=== PATIENT | female | born 1945 | race Caucasian/White ===

== ENCOUNTER → 2018-05-25 14:08 | Outpatient (CLI) | payer MEDICARE, MEDICAID, SELFPAY ==
--- NOTE | 2018-05-25 14:17 | XR_ITS ---
EXAM: XR cervical spine 5V HISTORY: Neck pain ITS.REASON: CERVICALGIA ORDERING PHYSICIAN: Debora Francisco PATIENT AGE: 72 years COMPARISON: None FINDINGS: There is mild degenerative disc disease at C4-C5 C5-C6 and C6-C7 with decrease in the disc spaces and small endplate osteophytes. No fracture or dislocation. No lytic or blastic change. There is some mild uncovertebral hypertrophy with mild foraminal narrowing on the right at C3-C4 and C4-C5 and on the left at C4-C5 and C5-C6. There is straightening of the cervical lordosis which may be due to patient positioning or muscle spasm. IMPRESSION: Cervical spondylosis with degenerative disc disease and uncovertebral arthropathy with mild bilateral foraminal narrowing as described above
== END ==
PROVIDERS: PCP Nurse Practitioner Family; Visit Provider Nurse Practitioner Family
DX: M54.2 Cervicalgia (principal)
CPT/HCPCS: 72050

== ENCOUNTER → 2018-06-08 14:08 | Outpatient (CLI) | payer MEDICARE, MEDICAID, SELFPAY ==
--- NOTE | 2018-06-08 14:40 | MR_ITS ---
MR cervical spine wo con Ordering Physician: Debora Francisco Patient Age: 72 years: Female HISTORY: ITS.REASON: CERVICALGIA Neck pain with involuntary shaking left-sided body. TECHNIQUE: Sagittal STIR, T1, T2, axial T1 and T2. On 1.5T Siemens wide bore MRI. 3-D MR myelogram image set obtained & performed on MRI workstation. Additional sagittal thin section T2 weighted dataset obtained from this latter acquisition as well (---76 CPT) COMPARISON :Plain films cervical spine 05/25/2018 FINDINGS Cranial cervical junction appears normal. The cervical cord normal caliber and signal 'Empty sella' incidentally noted Multilevel degenerative disc changes and cervical spondylosis most evident C4/5, C5 C6 C6/7 C2/3 disc intact no listhesis. C3/4 disc intact. C4/5. Mild disc space narrowing an cervical spondylosis. Mild diffuse posterior hypertrophic ridging. The mild diffuse posterior disc/osteophyte features indent anterior aspect of the thecal sac and yield mild foraminal encroachment. C5/6. Again disc space narrowing evident with mild diffuse posterior hypertrophic ridging..The mild diffuse posterior disc/osteophyte features slight indent anterior aspect of the thecal sac and yield mild foraminal encroachment. -Slightly more so on right C6/7disc space narrowing evident with mild diffuse posterior hypertrophic ridging..The mild diffuse posterior disc/osteophyte features with slight additional spurring left paracentral. These features slightly indents the anterior thecal sac particularly at the left paracentral region. Mild foraminal encroachment. -Slightly more evident to the left at this level. C7/T1 intact. T1/T2 disc intact. T2/T3. Minimal central disc protrusion with minor diffuse posterior hypertrophic ridging. . Mild degenerative facet changes throughout C-spine also noted most evident the at the upper C-spine bilateral 3-D MR myelogram image set shows the minor indentation upon the anterior thecal sac at C4/5 C5-C6 C6-C7.. Lesions slight narrowing of the C-spine with No definitive spinal stenosis Multilevel perineural cyst throughout C-spine bilaterally incidentally noted. Nonspecific incidental observation typically of no significance IMPRESSION:-------- Multilevel degenerative disc changes and cervical spondylosis most evident C4/5, C5 C6 C6/7 C6/7. The spondylosis & mild posterior osteophytic ridging is most evident at this level spurring slightly more pronounced towards left foramen with mild/moderate encroachment upon the foramen bilaterally. C5,/6 & C4/5 narrowed degenerated disc, mild spondylosis and mild posterior osteophytic ridging with mild bilateral foraminal encroachment. .
== END ==
PROVIDERS: PCP Nurse Practitioner Family; Visit Provider Nurse Practitioner Family
DX: M54.2 Cervicalgia (principal)
CPT/HCPCS: 72141; 76376

== ENCOUNTER → 2020-09-12 11:08 | Outpatient (CLI) | payer MEDICARE, MEDICAID, SELFPAY | PROVIDERS: PCP Nurse Practitioner Family; Visit Provider Internal Medicine | DX: E78.5 Hyperlipidemia, unspecified (principal); I10 Essential (primary) hypertension; R00.2 Palpitations; R06.00 Dyspnea, unspecified; R07.9 Chest pain, unspecified; R42 Dizziness and giddiness; R61 Generalized hyperhidrosis; R94.31 Abnormal electrocardiogram [ECG] [EKG]; Z72.0 Tobacco use | CPT/HCPCS: 93270 ==

== ENCOUNTER → 2020-10-13 06:08 | Outpatient (CLI) | payer MEDICARE, MEDICAID, SELFPAY ==
--- NOTE | 2020-10-13 06:08 | NM_ITS ---
APPROVED REPORT Exam: Nuclear Stress Test Indication: OBESITY, HTN, HYPERLIPIDEMIA, TOB USE, C.P., SOB, PALPITATIONS, ABN EKG Patient Location: Outpatient Stress Tech: Peyton Benavideznkson [place] Tech:Frances Kelly, ARRT RT (R)(N)(M) Ht: 5 ft 3 in Wt: 185 lbs Bra Size: 42DD HR: 71 bpm BP: 149/107 mmHg BSA: 1.87 m2 BMI: 32.7 History: OBESITY, HTN, HYPERLIPIDEMIA, TOB USE, C.P., SOB, PALPITATIONS, ABN EKG Procedure: Patient received a 0.4 mg of intravenous Lexiscan, resting heart rate 71 bpm, resting blood pressure 149/107 mmHg, with Lexiscan maximum heart rate achived was 99 bpm which is Less than 85 % of the maximum predicted heart rate and blood pressure was 193/102 mmHg. With Lexiscan, patient denied any complaint of chest pain. Electrocardiogram Resting electrocardiogram showed sinus rhythm, with Lexiscan there is less than 1.[address] segment depression noted from the baseline EKG. The EKG portion of the Lexiscan is nondiagnostic. Cardiac Stress and Resting SPECT Images: Cardiac Stress and Resting SPECT images were obtained using technetium 99m Myoview 31.3 mCi stress and 10.64 mCi at rest. Gated SPECT for analysis of segmental wall motion and calculation of the ejection fraction also done. Prone images were also obtained. Cardiac stress and resting SPECT images show uniform myocardial activity without segmental perfusion abnormality, computer derived ejection fraction is 55% with no regional wall motion abnormality, right ventricle is mildly enlarged with normal contractility, there is transient ischemic dilatation of the left ventricle seen, raising the concerns for presence of balanced ischemia, other causes for transient ischemic dilatation includes elevated left ventricular end-diastolic pressure, hypertensive heart disease, microvascular disease and diabetes. Clinical correlation is recommended. Conclusion: 1. The EKG portion of the Lexiscan is nondiagnostic 2. No scintigraphic evidence of reversible ischemia seen, computer derived ejection fraction is 55% with no regional wall motion abnormality, right ventricle is mildly enlarged with normal contractility, there is transient ischemic dilatation of the left ventricle seen, raising the concern for presence of balanced ischemia, other causes for transient ischemic dilatation includes elevated left ventricular end-diastolic pressure, hypertensive heart disease, microvascular disease and diabetes. Clinical correlation is recommended. 3. Abnormal Lexiscan Myoview study. Electronically signed by : Keenan Vasquez, 10/13/2020 10:44:58
--- NOTE | 2020-10-13 06:08 | CA_ITS ---
APPROVED REPORT EXAM: Comprehensive 2D, Doppler, and color-flow Echocardiogram [employer] Machine Tender: Jacqueline Hill RVT Ht: 5 ft 3 in Wt: 188lbs BSA: 1.88 BP: 161/89 mmHg Indications: PALPS,ABN EKG,CP,HTN,SOA,SMOKER,HLD TDS 2D Dimensions LVOT 1.57 cm (M/F) 1.5-2.5 LA Volume 34.50 mL LA Volume Index 18.35 mL/m2 (M/F) 16-34 M-Mode Dimensions RVDd 2.32 cm (0.9-2.6) LA Diam 3.95 cm (1.9-4.0) LVDd 4.14 cm (3.5-5.7) Ao Diam 2.96 cm (2.0-3.7) LVDs 2.36 cm (3.5-5.7) IVSd 1.63 cm (0.6-1.1) PWd 0.76 cm (0.6-1.1) EF (Teich) 74.60% FS 43.00% EDV (Teich) 75.90 mL TAPSE 2.14 (<1.7) ESV (Teich) 19.30 mL LV Diastology E Decel Time 203.00 (160-240 msec) E/A Ratio 0.8 MED E' 4.40 (< 7 cm/sec) E'/MED E' Ratio 14.02 (>14) LAT E' 6.00 (<10 cm/sec) E/LAT E' Ratio 10.28 (>14) Aortic Valve AI PHT 1337.00 ms AO Peak GR. 5.70 mmHg Mitral Valve MV E Max Dorian. 62.00 (40-130 cm/s) MV A Velocity 77.00 (40-130 cm/s) E/A Ratio 0.80 MV Decel. Time 203.00 (160-240 ms) MV PHT 60.00 ms Pulmonary Valve PV Peak Velocity 87.00 (50-150 cm/s) Tricuspid Valve TR P. Velocity 199.00 cm/s RAP Estimate 10.00 mmHg RVSP 25.80 mmHg Left Ventricle Left atrium is moderately enlarged, left ventricle is normal size, mild concentric left ventricular hypertrophy, visually estimated ejection fraction 55% with no regional wall motion abnormality, grade 1 diastolic dysfunction seen without tissue Doppler evidence of raise left atrial pressure. Right Ventricle Right atrium and right ventricle are normal size and contractility. Aortic Valve Aortic valve is thickened and calcified leaflet chordae display good mobility, there is no aortic stenosis, there is mild aortic insufficiency. Mitral Valve Mitral valve grossly normal, there is trace mitral regurgitation. Tricuspid Valve Tricuspid grossly normal, there is trace tricuspid regurgitation, tricuspid regurgitation jet velocity is inadequate for calculation of the right ventricular systolic pressure. Pulmonic Valve Pulmonic valve is poorly visualized. Great Vessels Aortic root is normal size. Pericardium No significant pericardial effusion noted. Conclusion 1. Moderately enlarged left atrium, normal left ventricular size, mild concentric left ventricular hypertrophy, visually estimated ejection fraction 55% with no regional wall motion abnormality, grade 1 diastolic dysfunction seen without tissue Doppler evidence of raise left atrial pressure. 2. Mild aortic, trace mitral and tricuspid regurgitation. 3. No significant pericardial effusion noted. Electronically signed by : Keenan Vasquez, 10/13/2020 12:41:55
--- NOTE | 2020-10-13 06:08 | CA_ITS ---
APPROVED REPORT Exam: Pharmacologic Technologist: Asuncion Ackerman, Ht: 5 ft 3 in Wt: 188 lbs BSA: 1.88 m2 Rhythm: NSR Medical History Medical History: HTN, Hyperlipidemia Medications: MeLOXICAM,,,,, DulOXETINE,,,,, ClonAZapam,,,,, PraAVASTATIN,,,,, Lisinopri/HCTZ,,,,, Atendol,,,,, Cardiac Risk Factors: HTN, Hyperlipidemia Stress Test Details Test: LEXISCAN HR Resting HR: 73 bpm Max Heart Rate (APMHR): 147.671417 bpm Max HR Achieved: 93 bpm Target HR (85% APMHR): 124.393687 bpm % of APMHR: 63.27 Recovery HR: 80 bpm BP Resting BP: 149/107 mmHg Max BP: 206/99 mmHg Recovery BP: 203.0/97.0 mmHg ECG Resting ECG: NSR Clinical Reason for Termination: Completed Protocol Exercise duration: 04:18 min Highest Stage Achieved: Exercise capacity: 1.0 METs Stress ECG Conclusion DURING LEXISCAN PT EXPERINCED NO CP. NO ARRTHYMIAS OR ECTOPY. <1.5MM ST SEGMENT CHANGES. NON DIAGNOSTIC Test Summary RECOVERY 04:00 . . 77 . 191/ 87 . . REST 04:12 . . 73 . 149/107 . . Stage 1 01:00 . . 82 . . . . Stage 2 01:00 . . 88 . 193/102 . . Stage 3 01:00 . . 82 . 206/ 99 . . Stage 4 01:00 . . 79 . . . . Stage 4 01:18 . . 81 . 201/ 95 . Stop exercise at 04:18 RECOVERY 01:00 . . 79 . 203/ 97 . . RECOVERY 02:00 . . 80 . 203/ 97 . . RECOVERY 03:00 . . 77 . 187/ 88 . . RECOVERY 04:00 . . 77 . 191/ 87 . . RECOVERY 05:00 . . 79 . 191/ 87 . . RECOVERY 06:00 . . 75 . 174/ 88 . . RECOVERY 06:11 . . 75 . 174/ 88 . . Electronically signed by : Keenan Vasquez, 10/13/2020 10:40:57
== END ==
PROVIDERS: PCP Nurse Practitioner Family; Visit Provider Nurse Practitioner Family
DX: E78.5 Hyperlipidemia, unspecified (principal); I10 Essential (primary) hypertension; R00.2 Palpitations; R07.9 Chest pain, unspecified; R94.31 Abnormal electrocardiogram [ECG] [EKG]; Z72.0 Tobacco use
CPT/HCPCS: 78452; 93017; 93306; A9502; J2785

== ENCOUNTER → 2020-11-03 08:17 | Outpatient (CLI) | payer MEDICARE, MEDICAID, SELFPAY ==
--- NOTE | 2020-11-03 08:18 | CA_ITS ---
APPROVED REPORT Hotel Housekeeper: Jacqueline Hill RVT Study Quality: Good Indications: malignant hypertension Risk Factors Hypertension Hyperlipidemia Obesity Smoking Renal Artery Doppler Origin (R) 138.7/ cm/sec Proximal (R) 131.5/ cm/sec Mid (R) 175.3/ cm/sec Distal (R) 140.3/ cm/sec Renal Aorta Ratio (R) 1.62 Segmental A. (R) 74.3/19.6 cm/sec RI: 0.73 Segmental A. Sup (R) 70.1/22.4 cm/sec Segmental A. Mid (R) 74.3/19.6 cm/sec Segmental A. Inf (R) 58.9/18.2 cm/sec Origin (L) 157.5/ cm/sec Proximal (L) 141.6/ cm/sec Mid (L) 113.3/ cm/sec Distal (L) 98.2/ cm/sec Renal Aorta Ratio (L) 0.00 Segmental A. (L) 57.5/17.6 cm/sec RI: 0.69 Segmental A. Sup (L) 57.5/17.6 cm/sec Segmental A. Mid (L) 48.1/19.9 cm/sec Segmental A. Inf (L) 51.6/14.1 cm/sec Renal Measurements Kidney Size (R) 11.9x6.7 cm Cortical Thickness (R) 1.6 cm Kidney Size (L) 12.5x7.4 cm Cortical Thickness (L) 1.5 cm Findings Study suggests no evidence of stenosis of the bilateral renal arteries. Conclusion Study suggests no evidence of stenosis of the bilateral renal arteries. Electronically signed by : Victor M Hudson MD 11/06/2020 17:30:46
== END ==
PROVIDERS: PCP Nurse Practitioner Family; Visit Provider Nurse Practitioner Family
DX: I10 Essential (primary) hypertension (principal)
CPT/HCPCS: 93976

== ENCOUNTER 2020-11-07 09:06 | Day surgery (SDC) | payer MEDICARE, MEDICAID, SELFPAY ==
[2020-11-07] VITALS (12 sets, daily range): BP systolic 105–161; BP diastolic 54–79; PULSE 61–87; RESP 16–20; TEMP 36.6; O2SAT 92–98; BMI 33.5
--- NOTE | 2020-11-07 07:37 | IR_ITS ---
APPROVED REPORT Patient Location: Outpatient PROCEDURES Left heart catheterization Left ventriculogram Selective coronary angiogram INDICATION Abnormal Myoview, Angina pectoris Informed consent was obtained prior to the procedure. COMPLICATIONS None Estimated Blood Loss: less than 10ml TECHNIQUE One percent lidocaine used to anesthetize the right anterior aspect of the wrist. The right radial artery was accessed via the Seldinger technique. A 6 Mohawk sheath was placed in the right radial artery. 2.5 mg of verapamil, 800 mcg of nitroglycerin, 1mg Lidocaine and 5000 U Heparin were given through the arterial sheath. The trap catheter was also used to perform left heart catheterization, left ventriculogram and selective coronary angiogram. At the end of the procedure the sheath was removed good hemostasis was achieved using Traclet band, patient was transferred to the postop holding area in stable condition. ANGIOGRAPHIC RESULTS The left main artery Normal The left anterior descending artery Has slow HARJIT II flow down its entire course with no angiographic evidence of proximal mid or distal focal atherosclerotic plaque The circumflex artery Codominant large with HARJIT II flow and no angiographic evidence of atherosclerotic plaque The right coronary artery Codominant and has a proximal 30% stenosis The PATINO ventriculogram reveals Slightly hyperdynamic at 70% The left ventricular end-diastolic pressure 15 mmHg IMPRESSION HARJIT II flow down the LAD and codominant circumflex artery consistent with endothelial dysfunction Hyperdynamic ventricle with mildly elevated LVEDP consistent with diastolic dysfunction Mild nonflow limiting coronary disease in the right coronary PLAN 1. Medical management for endothelial dysfunction, coronary disease, and diastolic dysfunction 2. Standard risk factor modification Electronically signed by : Gerald Stanley, 11/07/2020 11:08:58
[2020-11-07 09:48] LABS: Basophils # 0.1 K/mm3 (0-0.2); Basophils % 0.5 % (0.1-2.0); Eosinophils # 1.4 K/mm3 (0.0-0.4); Eosinophils % 10.6 % (0.1-12.0); Hemoglobin 15.8 g/dL (12.2-16.2); Lymphocytes # 3.6 K/mm3 (0.7-4.5); Lymphocytes % 26.7 % (10-50); Mean Corpuscular HGB Conc 34.3 g/dL (31.8-35.4); Mean Corpuscular Hemoglobin 29.4 pg (27.0-31.2); Mean Corpuscular Volume 85.6 fl (81-99); Mean Platelet Volume 7.4 fl (7.4-10.4); Monocytes # 0.7 K/mm3 (0.1-1.0); Monocytes % 5.3 % (1.7-9.3); Neutrophils # 7.6 K/mm3 (1.8-7.8); Neutrophils % 56.7 % (37.0-80.0); Platelet Count 345 K/mm3 (142-424); Red Blood Count 5.37 M/mm3 (4.20-5.40); Red Cell Distribution Width 13.3 % (11.5-17.5); White Blood Count 13.3 K/mm3 (4.8-10.8)
[2020-11-07 10:10] LABS: Chloride 101 mmol/L (98-107)
[2020-11-07 10:11] LABS: Potassium 3.9 mmoL/L (3.5-5.1); Sodium 140 mmol/L (136-145)
[2020-11-07 10:14] LABS: Anion Gap 13.9 mEq/L (5-15); Blood Urea Nitrogen 9 mg/dl (7-17); Calcium 9.6 mg/dl (8.4-10.2); Carbon Dioxide 29 mmol/L (22.0-30.0); Creatinine Clearance Estimated 68 mL/min (50-200); Estimated Glomerular Filt Rate 98 ml/min (>60); GFR (African American) 119 ML/MIN (>60); Glucose 125 mg/dl (74-100)
[2020-11-07 10:31] LABS: Coronavirus 19 IgG Antibody Positive (Negative); Coronavirus 19 IgM Antibody Negative (Negative)
== END 2020-11-07 14:15 | disposition home or self-care (01) ==
LOC: CATHLAB 09:11
PROVIDERS: PCP Nurse Practitioner Family; Visit Provider Internal Medicine
DX: I25.10 Atherosclerotic heart disease of native coronary artery without angina pectoris (principal); R06.02 Shortness of breath; R94.39 Abnormal result of other cardiovascular function study; Z79.82 Long term (current) use of aspirin; Z88.8 Allergy status to other drugs, medicaments and biological substances
CPT/HCPCS: 80048; 85025; 86328; 93458; 99152; C1725; C1769; J1644; Q9967

== ENCOUNTER 2020-12-17 11:40 | Emergency (ER) | payer MEDICARE, MEDICAID, SELFPAY ==
[2020-12-17 11:41] VITALS: BP 139/81; PULSE 73; RESP 16; TEMP 36.7; O2SAT 97; BMI 33.3
[2020-12-17 11:45] VITALS: BP 139/81; PULSE 73; RESP 16; TEMP 36.7; O2SAT 97; BMI 33.3
--- NOTE | 2020-12-17 12:08 | XR_ITS ---
PROCEDURE INFORMATION: Exam: XR Right Ankle Exam date and time: 12/17/2020 12:08 PM Age: 75 years old Clinical indication: Patient HX: Right ankle pain and swelling for a week. TECHNIQUE: Imaging protocol: XR Right ankle. Views: 3 or more views. COMPARISON: No relevant prior studies available. FINDINGS: Bones/joints: There is no evidence of acute fracture. Small calcaneal spur. There is no evidence of joint malalignment or dislocation. Soft tissues: Mild soft tissue swelling. There are no soft tissue masses or fluid collections. IMPRESSION: 1. No evidence of acute fracture. 2. Mild soft tissue swelling. 3. No evidence of acute dislocation.
--- NOTE | 2020-12-17 12:18 | HMH.EDUTC ---
[facility] [place] Disposition Clinical Impression: Ankle pain Qualifiers: Chronicity: unspecified Laterality: right Qualified Code(s): M25.571 - Pain in right ankle and joints of right foot Cellulitis Qualifiers: Site of cellulitis: unspecified site Qualified Code(s): L03.90 - Cellulitis, unspecified Disposition: Home, Self-Care Condition on Discharge: Good Instructions: DI for Cellulitis -- Adult, Cellulitis, How to Apply an Mat Wrap Additional Instructions: *weight bearing as tolerated *RICE, Rest the extremity, Ice 15-20 minutes 3-4 times daily, Compress- wear the mat wrap as discussed as much as possible to help reduce swelling and pain, Elevate the extremity when at rest *Mat wrap is for support and help control swelling, use it except in the shower. Be sure that is not to tight but not to loose either *Elevate when resting *Ibuprofen every 6-8 hours as needed for pain an inflammation. If need something more can take Tylenol in between doses of Ibuprofen to help Immediately follow up with your family doctor for new or worsening of symptoms, or no noticeable improvement over the next 3-5 days You can call back to the [facility] later today for official reading on your xray *Start antibiotic(s) immediately and be sure to take as ordered for the FULL length of time although you may be feeling better or start to see improvement in the next 24-48 hours *Monitor closely. Outlined redness so that you can monitor easier. Follow up immediately for new or worsening symptoms including but not limited to redness, swelling, streaking from site fever or chills. *Warm compress 15 minutes 3-4 times day * Follow up with your family doctor/primary care physician in the next 48-72 hours if no improvement Follow up with Family Doctor if no improvement or any worsening of symptoms Prescriptions: cephALEXin [cephALEXin 500mg capsule*] 500 mg PO Q6H 5 Days #20 cap Transmission Status: Received by [facility] Referrals: Debora Francisco APRN [Primary Care Provider] - As needed Time of Disposition: 13:14 Medical Decision Making - Jeffrey Inquiry Pt receiving controlled substance: No Jeffrey was queried for this patient: No Vital Signs: 12/17/20 11:41 12/17/20 11:45 12/17/20 13:16 Temperature 98.1 F 98.1 F 98.1 F Temperature Source Oral Oral Pulse Rate 73 Pulse Rate [Right] 73 73 Respiratory Rate 16 16 16 Blood Pressure 139/81 Blood Pressure [Right Arm] 139/81 139/81 Blood Pressure Mean [Right Arm] 100 100 Blood Pressure Source [Right Arm] Automatic Cuff Blood Pressure Position [Right Arm] Sitting 02 Sat by Pulse Oximetry 97 97 Oxygen Delivery Method Room Air Room Air - Lab Data Lab Results 12/17/20 12:10: Uric Acid 4.5 Orders (Tests/Meds): ED MEDICATIONS Discontinued Medications Generic Name Dose Route Start Last Admin Trade Name Freq PRN Reason Stop Dose Admin Cephalexin HCl 500 mg 12/17/20 13:21 12/17/20 13:23 Cephalexin 500mg Capsule PO 12/17/20 13:22 500 mg ONCE ONE Administration Protocol - Radiology Data #1 Image(s): Ankle Image Reviewed: Yes I reviewed the patient's radiology image Preliminary Findings: No Fracture Seen No acute fracture seen will place in mat wrap and have patient call back for official reading Medical Decision Narrative: Ankle swollen, red and warm appears like cellulitis and redness starting to move up on lower leg [facility] [place] HPI - General Stated complaint: swollen R ankle no accident Time Seen by Provider: 12/17/20 12:18 Mode of Arrival: Ambulatory Source of Information: Patient Limitations: No Limitations Description of Symptoms (Recalled from Triage Doc. by RN): PATIENT C/O RIGHT ANKLE SWELLING X 1 WEEK. NO KNOWN INJURY HEENT Symptoms (Recalled from RN notes): No Resp Symptoms (Recalled from RN notes): No Skin Symptoms (Recalled from RN notes): No MS Symptoms (Recalled from RN notes): Yes Functional Status (Recalled from RN notes): WNL -
[2020-12-17 12:33] LABS: Uric Acid 4.5 mg/dl (2.5-6.2)
[2020-12-17 13:16] VITALS: BP 139/81; PULSE 73; RESP 16; TEMP 36.7; O2SAT 97
== END 2020-12-17 13:26 | disposition home or self-care (01) ==
LOC: ER 11:48 → UTC 11:49
PROVIDERS: Emergency Provider Nurse Practitioner; PCP Nurse Practitioner Family
DX: L03.115 Cellulitis of right lower limb (principal); I10 Essential (primary) hypertension; F41.9 Anxiety disorder, unspecified; F17.210 Nicotine dependence, cigarettes, uncomplicated; Z79.899 Other long term (current) drug therapy; Z88.8 Allergy status to other drugs, medicaments and biological substances
CPT/HCPCS: G0463; 73610; 84550; 99202

== ENCOUNTER → 2022-08-20 09:09 | Outpatient (CLI) | payer MEDICARE, MEDICAID, SELFPAY ==
[2022-08-20 10:33] LABS: Basophils # 0.1 K/mm3 (0-0.2); Basophils % 0.8 % (0.1-2.0); Eosinophils # 0.8 K/mm3 (0.0-0.4); Eosinophils % 7.8 % (0.1-12.0); Hematocrit 45.2 % (37.0-47.0); Hemoglobin 15.1 g/dL (12.2-16.2); Lymphocytes # 2.7 K/mm3 (0.7-4.5); Lymphocytes % 26.5 % (10-50); Mean Corpuscular HGB Conc 33.4 g/dL (31.8-35.4); Mean Corpuscular Hemoglobin 29.6 pg (27.0-31.2); Mean Corpuscular Volume 88.6 fl (81-99); Mean Platelet Volume 8.2 fl (7.4-10.4); Monocytes # 0.6 K/mm3 (0.1-1.0); Monocytes % 5.8 % (1.7-9.3); Neutrophils % 59.1 % (37.0-80.0); Platelet Count 346 K/mm3 (142-424); Red Cell Distribution Width 12.9 % (11.5-17.5); White Blood Count 10.2 K/mm3 (4.8-10.8)
[2022-08-20 11:04] LABS: Chloride 98 mmol/L (98-107); Sodium 138 mmol/L (136-145)
[2022-08-20 11:05] LABS: Potassium 4.2 mmoL/L (3.5-5.1)
[2022-08-20 11:07] LABS: Alanine Aminotransferase 33 U/L (12-78); Albumin Level 4.2 g/dl (3.5-5.0); Alkaline Phosphatase 61 U/L (38-126); Anion Gap 11.2 mEq/L (5-15); Aspartate Amino Transferase 34 U/L (14-36); Bilirubin,Direct 0.2 mg/dl (0.0-0.4); Bilirubin,Indirect 0.2 mg/dL (0.0-0.9); Bilirubin,Total 0.4 mg/dl (0.2-1.3); Bilirubin,Unconjugated 0.3 mg/dL (0.0-1.1); Blood Urea Nitrogen 13 mg/dl (7-17); Carbon Dioxide 33 mmol/L (22.0-30.0); Chol/HDL Ratio 3.6 (1-3.5); Cholesterol 135 mg/dl (140-200); Estimated Glomerular Filt Rate 82 ml/min (>60); GFR (African American) 99 ML/MIN (>60); Glucose 106 mg/dl (74-100); HDL Cholesterol 38 mg/dl (40-60); Magnesium 1.8 mg/dl (1.6-2.3); Total Protein,Serum 6.7 g/dl (6.3-8.2); Triglycerides 152 mg/dl (30-150); VLDL Cholesterol 30 mg/dL (0-40)
[2022-08-20 11:23] LABS: Free T4 (Free Thyroxine) 0.95 ng/dl (0.78-2.19)
== END ==
PROVIDERS: PCP Nurse Practitioner Family; Visit Provider Nurse Practitioner
DX: E78.2 Mixed hyperlipidemia (principal); I10 Essential (primary) hypertension; I25.10 Atherosclerotic heart disease of native coronary artery without angina pectoris; R06.00 Dyspnea, unspecified; Z72.0 Tobacco use; R94.31 Abnormal electrocardiogram [ECG] [EKG]
CPT/HCPCS: 36415; 80048; 80061; 80076; 83735; 84439; 84443; 85025

== ENCOUNTER 2023-10-29 09:18 | Outpatient (CLI) | payer MEDICARE, MEDICAID, SELFPAY ==
--- NOTE | 2023-10-29 09:25 | XR_ITS ---
FINAL REPORT TECHNIQUE: Bone densitometry calculations of the lumbar spine and left hip were obtained. CLINICAL HISTORY: POST MENOPAUSAL FINDINGS: Using L1-4, the bone mineral density of the spine is 0.879 g/cm2, corresponding to T-score of -1.5. Using the left hip, the bone mineral density of the femoral neck is 0.712 g/cm2, corresponding to a T-score of -1.2. Using the right hip, the bone mineral density of the femoral neck is 0.733 g/cm2, corresponding to a T-score of -1.0. NOTE: T-score: Standard deviation compared with peak bone mass of young adult mean. *Following the recommendations of the International Society of Bone densitometry, classification of hip BMD is based on the lower of two T-scores; total hip or femoral neck. IMPRESSION: Diminished bone mineral density consistent with low bone density. FRAX data shows 10 year fracture risk of 11% for major osteoporotic fracture and 3% for hip fracture. Reviewed, Interpreted and Dictated by Alex Brice III, MD Transcribed by Joanne Garcia Authenticated and [facility]
== END 2023-10-29 23:59 | disposition home or self-care (01) ==
LOC: RAD 09:19
PROVIDERS: PCP Nurse Practitioner Family; Visit Provider Nurse Practitioner Family
DX: Z13.820 Encounter for screening for osteoporosis; Z78.0 Asymptomatic menopausal state
CPT/HCPCS: 77080

== ENCOUNTER 2024-03-18 09:55 | Outpatient (CLI) | payer MEDICARE, MEDICAID, SELFPAY ==
[2024-03-18] MEDS: ALBUTEROL 0.083% 2.5 MG/3 ML NEB IH (10:48)
== END 2024-03-18 23:59 | disposition home or self-care (01) ==
LOC: RT 09:57
PROVIDERS: PCP Nurse Practitioner Family; Visit Provider Nurse Practitioner Family
DX: J44.9 Chronic obstructive pulmonary disease, unspecified (principal)
CPT/HCPCS: 94060; 94727; 94729; J7613

== ENCOUNTER 2024-10-19 16:21 | Emergency (ER) | payer MEDICARE, MEDICAID, SELFPAY ==
[2024-10-19] VITALS (9 sets, daily range): BP systolic 170–242; BP diastolic 74–113; PULSE 70–74; RESP 16–27; TEMP 36.6–36.7; O2SAT 96–99; BMI 32.4
--- NOTE | 2024-10-19 | ECG_ITS ---
APPROVED REPORT Exam: Resting ECG HR:70 bpm ECG Measurements Heart Rate 70 AXES PA 168 P 54 QRSd 110 QRS 24 QT 416 T 55 QTc 437 Conclusion SINUS RHYTHM NORMAL ECG Electronically signed by : Jewel Mohan, 10/19/2024 21:42:49
--- NOTE | 2024-10-19 16:32 | ED_ITS ---
Discharge Plan Disposition Patient Disposition: Home, Self-Care Condition: Good Prescriptions Prescriptions: No Action atenolol 50 mg tablet 50 mg PO DAILY lisinopril-hydrochlorothiazide 20-12.5 mg tablet 1 tab PO DAILY meloxicam 15 tablet 7.5 mg PO DAILY clonazepam 0.5 tablet 0.5 mg PO TID pravastatin 10 MG tablet 10 mg PO DAILY duloxetine 60 MG capsule,delayed release(DR/EC) 60 mg PO DAILY Referrals Follow up/Referrals: Malka Wharton APRN [Primary Care Provider] - See instructions Viral Couch MD [Staff Physician] - See instructions (Uncontrolled hypertension) Activity Restrictions/Add. Instructions Additional Instructions/Restrictions: I recommend following up with your PCP within 48 hours to recheck your blood pressure. I recommend keeping a blood pressure log. I am referring you back to cardiology for reevaluation given the markedly elevated nature of your blood pressure. If you have continued new or worsening signs or symptoms follow-up sooner with your PCP or return to the ER as needed. Clinical Impressions Clinical Impression: Severe uncontrolled hypertension Print Language Print Language: Guinean Discharge ED Provider: Jewel Mohan General Adult HPI <LUIZ Gonsalez - Last Filed: 10/19/24 19:53> General Chief complaint: Neuro Symptoms/Deficit Stated complaint: LE x 2 months, sent by Malka Wharton Time Seen by Provider: 10/19/24 16:25 History of Present Illness HPI narrative: Patient presents from her PCPs office for headache. We did not receive information from the PCP prior to the patient's arrival. Patient states that she went to her PCP because she has had a month of on and off headache but for the last 3 days has been present. She denies any nausea vomiting diarrhea loss of motor or sensory change of mental status. She denies chest pain shortness of breath fever chills hemoptysis hematochezia melena nausea vomiting diarrhea. Patient states that her symptoms are not present at the time of her arrival in the ER. Patient does have a known history of hypertension and is on atenolol along with lisinopril hydrochlorothiazide and patient reports compliance with her medication. Patient also states that her headache seems to be located behind her right eye when it happens. When she has had her headache it does not cause any change in level of consciousness and it tends to be across the front of her head but again focally located behind her left eye. Related Data Home Medications ?Medication ?Instructions ?Recorded ?Confirmed clonazepam 0.5 mg tablet 0.5 mg PO TID Anxiety 07/30/18 08/20/22 duloxetine 60 mg capsule,delayed 60 mg PO DAILY mood 07/30/18 08/20/22 release meloxicam 15 mg tablet 7.5 mg PO DAILY Arthritis 07/30/18 08/20/22 pravastatin 10 mg tablet 10 mg PO DAILY Cholesterol 07/30/18 08/20/22 atenolol 50 mg tablet 50 mg PO DAILY htn 09/12/20 08/20/22 lisinopril 20 1 tab PO DAILY 08/20/22 08/20/22 mg-hydrochlorothiazide 12.5 mg tablet Allergies Allergy/AdvReac Type Severity Reaction Status Date / Time phenobarbital (PHENOBARBITAL) Allergy Severe THROAT Verified 08/20/22 08:39 [facility]ING [facility] <LUIZ Gonsalez - Last Filed: 10/19/24 19:53> [facility] Disclaimer: The information contained in this section may have been updated after the patient was seen, as this information can be updated by other users. Medical History (Updated 10/19/24 @ 19:17 by LUIZ Gonsalez) Dyspnea Diastolic dysfunction CAD (coronary artery disease) Social History Smoking Status: Never smoker alcohol intake: never substance use type: denies use current occupational status: other Travel in the last 8 weeks?: None caffeine: Yes Have you lived/traveled outside [place] in past 30 days?: No Contact w/someone who lives/traveled outside US past 30 days?: No Exposure to someone with infectious disease in past 14 days?: No Do you have a fever (greater than 100.4 F or 38 C)?: No Have you tested positive for COVID-19?: No Exposed to someone with COVID-19 in past 14 days?: No Do you have a sore throat?: No Do you have a cough?: No Do you have any weakness?: No Do you have any diarrhea?: No Are you experiencing any unusual bleeding?: No Do you have any muscle aches/pain?: No Do you have any abdominal pain?: No Are you experiencing loss of taste or smell?: No Other Medical History Have you received the Flu Vaccine for this season: Yes Have you received the Pneumonia Vaccine: No <LUIZ Gonsalez - Last Filed: 10/19/24 19:53> ROS Obtained: Yes Systems reviewed as appropriate & no additional complaints except as documented Physical Exam <LUIZ Gonsalez - Last Filed: 10/19/24 19:53> General General appearance: alert and in no apparent distress Respiratory Respiratory exam: Present normal lung sounds bilaterally Cardiovascular Cardiovascular exam: Present regular rate and +S2 Neurological Exam Neurological exam: Present alert and oriented X3 Medical Decision Making <LUIZ Gonsalez - Last Filed: 10/19/24 19:53> Medical Records Medical records reviewed: Yes I reviewed the patient's medical records. Screening: Per USPSTF and CDC recommendations, given the prevalence of disease in our region, it is our hospital?s policy to screen for HIV and viral Hepatitis for all patients aged 18 and over and those with ongoing risk factors. Jeffrey Inquiry Pt receiving controlled substance: No Vital Signs: 10/19/24 16:36 10/19/24 16:46 10/19/24 17:02 Temperature 98.1 F Temperature Source Oral Pulse Rate Pulse Rate [Left Radial] 70 Respiratory Rate 17 27 H 18 Blood Pressure 211/96 H 242/113 H Blood Pressure [Right Arm] 201/94 H Blood Pressure Mean Blood Pressure Mean [Right Arm] 129 Blood Pressure Source [Right Arm] Automatic Cuff Blood Pressure Position [Right Arm] Sitting 02 Sat by Pulse Oximetry 99 Oxygen Delivery Method Room Air 10/19/24 17:15 10/19/24 18:26 10/19/24 18:56 Temperature Temperature Source Pulse Rate 73 Pulse Rate [Left Radial] Respiratory Rate 24 25 H 18 Blood Pressure 242/113 H 186/101 H 179/83 H Blood Pressure [Right Arm] Blood Pressure Mean Blood Pressure Mean [Right Arm] Blood Pressure Source [Right Arm] Blood Pressure Position [Right Arm] 02 Sat by Pulse Oximetry 98 Oxygen Delivery Method 10/19/24 19:01 10/19/24 19:30 Temperature Temperature Source Pulse Rate 74 Pulse Rate [Left Radial] Respiratory Rate 23 Blood Pressure 170/74 H 174/75 H Blood Pressure [Right Arm] Blood Pressure Mean 105 Blood Pressure Mean [Right Arm] Blood Pressure Source [Right Arm] Blood Pressure Position [Right Arm] 02 Sat by Pulse Oximetry 96 Oxygen Delivery Method Lab Data Lab results reviewed: Yes I reviewed the patient's lab results. Lab Results 10/19/24 16:46: POC Glucose 142 H 10/19/24 17:23: WBC 13.7 H, RBC 5.18, Hgb 15.1, Hct 43.5, MCV 84.0, MCH 29.2, MCHC 34.7, RDW 12.8, Plt Count 290, MPV 9.5, Neut % (Auto) 58.5, Lymph % (Auto) 24.0, [place] % (Auto) 7.0, Eos % (Auto) 9.6, Baso % (Auto) 0.5, Neut # (Auto) 8.0 H, Lymph # (Auto) 3.3, [place] # (Auto) 1.0, Eos # (Auto) 1.3 H, Baso # (Auto) 0.1, ESR 12, PT 10.7, INR 0.95, Sodium 140, Potassium 3.6, Chloride 101, Carbon Dioxide 31 H, Anion Gap 11.6, BUN 14, Creatinine 0.70, Estimated Creat Clear 62, Estimated GFR 81, Est GFR ( Amer) 98, Glucose 136 H, Calcium 9.6, Magnesium 1.8, Total Bilirubin 0.5, AST 31, ALT 23, Alkaline Phosphatase 63, Troponin I < 0.01, C-Reactive Protein 10.0 H, NT-Pro-B Natriuret Pep 180, Total Protein 7.3, Albumin 4.3, Globulin 3.0, Albumin/Globulin Ratio 1.4, Procalcitonin 0.062, HCV Ab CARMEN w/Rflx PCR Qn Negative, HIV Ag/Ab Combo Qual Negative 10/19/24 18:46: Urine Color Yellow, Urine Appearance Clear, Urine pH 6.5, Ur Specific [place] 1.010, Urine Protein Negative, Urine Glucose (UA) Negative, Urine Ketones Negative, Urine Blood 1+ A, Urine Nitrate Negative, Urine Bilirubin Negative, Urine Urobilinogen 0.2, Ur Leukocyte Esterase 1+ A, Urine RBC 5-10, Urine WBC 20-50, Ur Squamous Epith Cells 20-50, Urine Bacteria 4+ 10/19/24 17:23 10/19/24 17:23 Orders (Tests/Meds): ED MEDICATIONS Discontinued Medications Generic Name Dose Route Start Last Admin Trade Name Kirk PRN Reason Stop Dose Admin Acetaminophen 1,000 mg 10/19/24 16:36 10/19/24 17:24 Acetaminophen 500mg Tab PO 10/19/24 16:37 1,000 mg ONCE ONE Administration Iopamidol 80 ml 10/19/24 18:24 10/19/24 18:26 Iopamidol-370 (76%);100ml Bottle IV 10/19/24 18:25 80 ml ONCE ONE Administration Sodium Chloride 10 ml 10/19/24 18:24 10/19/24 18:26 Sodium Chloride 0.9% 10ml Syr (Rad Only) IV 10/19/24 18:25 10 ml ONCE ONE Administration Sodium Chloride 50 ml 10/19/24 18:24 10/19/24 18:26 0.9 % Sodium Chloride 50 Ml Vial IV 10/19/24 18:25 50 ml ONCE ONE Administration ORDERS Category Date Time Status CT angio head Stat Cat Scan 10/19/24 16:[address] angio neck Stat Cat Scan 10/19/24 16:[address] head/brain wo con Stat Cat Scan 10/19/24 16:36 Completed BNP [NT Pro Brain Natriuretic Pep.] Stat Lab 10/19/24 17:23 Completed CBC w/Auto Diff [Complete Blood Count Auto Diff] Stat Lab 10/19/24 17:23 Completed CMP [Comprehensive Metabolic Panel] Stat Lab 10/19/24 17:23 Completed CRP [C-Reactive Protein] Stat Lab 10/19/24 17:23 Completed ESR [Erythrocyte Sedimentation Rate] Stat Lab 10/19/24 17:23 Completed HIV Combo Stat Lab 10/19/24 17:23 Completed Hepatitis C Ab Qual. W/ RFX Stat Lab 10/19/24 17:23 Completed INR [Prothrombin Time INR] Stat Lab 10/19/24 17:23 Completed Magnesium Stat Lab 10/19/24 17:23 Completed POC Glucose,Bedside Routine Lab 10/19/24 16:46 Completed Procalcitonin Stat Lab 10/19/24 17:23 Completed Trop I [Troponin I] Stat Lab 10/19/24 17:23 Completed Troponin I Q3H Lab 10/19/24 22:45 Ordered UA [Urinalysis and Microscopic] Stat Lab 10/19/24 18:46 Completed Urine Culture Stat Micro 10/19/24 18:46 Received HEART Score History (anamnesis): Slightly suspicious ECG: Non-specific disturbance Age: >65 years Risk factors: Atherosclerosis history Troponin: </= normal limit HEART Score: 5 Medical Decision Narrative: In summary patient is a 79-year-old female who presents to the emergency department for evaluation of a month of headache intermittently but has been present for the last 3 days. Patient currently has no symptoms however. Patient is markedly hypertensive on arrival with a blood pressure of 201/94 but heart rate is 70 breathing 17 times minute satting at 99% on room air upon arrival, afebrile at 98.1. Physical exam is remarkable for a [place] Coma Score 15 cranial nerves II through XII intact respiratory exam pupils equal round reactive to light accommodation patient has no cervical spine tenderness no rigidity no meningeal signs patient has full range of motion of her C-spine. She is ambulatory in the emergency department without any focal neurologic deficits. She has normal gait and station. Breath sounds clear and equal bilaterally to the bases without adventitious sounds. Cardiovascular S1-S2 regular rate and rhythm without murmurs gallops rubs or thrills. No dependent edema noted. Abdomen soft nontender no rebound or guarding no rigidity. Bowel sounds normal active. Differential diagnosis includes migraine headache versus PRES versus stroke versus kidney injury versus hypertensive cardiomyopathy versus aneurysm etc. Initial workup will be conducted with hematologic labs urinalysis CT of the head without contrast CTA of the head and neck. Initial interventions were considered including migraine cocktail and antihypertensives however patient is currently asymptomatic and without complaint thus deferred for now. Initial workup reviewed by me and her hematologic labs show white count of 13.7 normal H&H absolute neutrophil count of 8.0 INR is 0.95 CMP significant for CO2 of 31 glucose of 136 magnesium 1.8 troponin is undetectable at less than 0.01 CRP of 10 and NT proBNP of 180 procalcitonin 0.062 and a urinalysis that is negative for protein glucose and total x 1+ of blood negative nitrates and 1+ of leukocyte Estrace however microscopic exam shows 5-10 red cells 20-50 white cells 20-50 squamous epithelial cells indicating contamination 4+ bacteria. Patient has no dysuria symptoms thus treatment is deferred. Medical interpretation of her CT scans prior to radiology read shows no acute intracranial abnormality or large vessel occlusion or stroke. Please see final read for formal interpretation.. Upon repeat evaluation patient remains with a Sole Coma Score 15 awake alert and oriented person place circumstance and not stroke score 0 and asymptomatic. Given this patient has no evidence of endorgan tissue damage despite having markedly elevated blood pressure. Given this we have essentially ruled out any serious or life-threatening condition and while there remains diagnostic uncertainty of the cause of her headaches patient is appropriate for discharge with close follow-up with her PCP for better blood pressure management. Again I will also refer the patient to cardiology given the marked [place] elevated nature of her blood pressure. Patient verbalized understanding and agreed <Jewel Mohan MD - Last Filed: 10/19/24 19:55> Vital Signs: 10/19/24 16:36 10/19/24 16:46 10/19/24 17:02 Temperature 98.1 F Temperature Source Oral Pulse Rate Pulse Rate [Left Radial] 70 Respiratory Rate 17 27 H 18 Blood Pressure 211/96 H 242/113 H Blood Pressure [Right Arm] 201/94 H Blood Pressure Mean Blood Pressure Mean [Right Arm] 129 Blood Pressure Source [Right Arm] Automatic Cuff Blood Pressure Position [Right Arm] Sitting 02 Sat by Pulse Oximetry 99 Oxygen Delivery Method Room Air 10/19/24 17:15 10/19/24 18:26 10/19/24 18:56 Temperature Temperature Source Pulse Rate 73 Pulse Rate [Left Radial] Respiratory Rate 24 25 H 18 Blood Pressure 242/113 H 186/101 H 179/83 H Blood Pressure [Right Arm] Blood Pressure Mean Blood Pressure Mean [Right Arm] Blood Pressure Source [Right Arm] Blood Pressure Position [Right Arm] 02 Sat by Pulse Oximetry 98 Oxygen Delivery Method 10/19/24 19:01 10/19/24 19:30 Temperature Temperature Source Pulse Rate 74 Pulse Rate [Left Radial] Respiratory Rate 23 Blood Pressure 170/74 H 174/75 H Blood Pressure [Right Arm] Blood Pressure Mean 105 Blood Pressure Mean [Right Arm] Blood Pressure Source [Right Arm] Blood Pressure Position [Right Arm] 02 Sat by Pulse Oximetry 96 Oxygen Delivery Method Lab Data Lab Results 10/19/24 16:46: POC Glucose 142 H 10/19/24 17:23: WBC 13.7 H, RBC 5.18, Hgb 15.1, Hct 43.5, MCV 84.0, MCH 29.2, MCHC 34.7, RDW 12.8, Plt Count 290, MPV 9.5, Neut % (Auto) 58.5, Lymph % (Auto) 24.0, [place] % (Auto) 7.0, Eos % (Auto) 9.6, Baso % (Auto) 0.5, Neut # (Auto) 8.0 H, Lymph # (Auto) 3.3, [place] # (Auto) 1.0, Eos # (Auto) 1.3 H, Baso # (Auto) 0.1, ESR 12, PT 10.7, INR 0.95, Sodium 140, Potassium 3.6, Chloride 101, Carbon Dioxide 31 H, Anion Gap 11.6, BUN 14, Creatinine 0.70, Estimated Creat Clear 62, Estimated GFR 81, Est GFR ( Amer) 98, Glucose 136 H, Calcium 9.6, Magnesium 1.8, Total Bilirubin 0.5, AST 31, ALT 23, Alkaline Phosphatase 63, Troponin I < 0.01, C-Reactive Protein 10.0 H, NT-Pro-B Natriuret Pep 180, Total Protein 7.3, Albumin 4.3, Globulin 3.0, Albumin/Globulin Ratio 1.4, Procalcitonin 0.062, HCV Ab CARMEN w/Rflx PCR Qn Negative, HIV Ag/Ab Combo Qual Negative 10/19/24 18:46: Urine Color Yellow, Urine Appearance Clear, Urine pH 6.5, Ur Specific [place] 1.010, Urine Protein Negative, Urine Glucose (UA) Negative, Urine Ketones Negative, Urine Blood 1+ A, Urine Nitrate Negative, Urine Bilirubin Negative, Urine Urobilinogen 0.2, Ur Leukocyte Esterase 1+ A, Urine RBC 5-10, Urine WBC 20-50, Ur Squamous Epith Cells 20-50, Urine Bacteria 4+ Orders (Tests/Meds): ED MEDICATIONS Discontinued Medications Generic Name Dose Route Start Last Admin Trade Name Freq PRN Reason Stop Dose Admin Acetaminophen 1,000 mg 10/19/24 16:36 10/19/24 17:24 Acetaminophen 500mg Tab PO 10/19/24 16:37 1,000 mg ONCE ONE Administration Iopamidol 80 ml 10/19/24 18:24 10/19/24 18:26 Iopamidol-370 (76%);100ml Bottle IV 10/19/24 18:25 80 ml ONCE ONE Administration Sodium Chloride 10 ml 10/19/24 18:24 10/19/24 18:26 Sodium Chloride 0.9% 10ml Syr (Rad Only) IV 10/19/24 18:25 10 ml ONCE ONE Administration Sodium Chloride 50 ml 10/19/24 18:24 10/19/24 18:26 0.9 % Sodium Chloride 50 Ml Vial IV 10/19/24 18:25 50 ml ONCE ONE Administration ORDERS Category Date Time Status CT angio head Stat Cat Scan 10/19/24 16:[address] angio neck Stat Cat Scan 10/19/24 16:[address] head/brain wo con Stat Cat Scan 10/19/24 16:36 Completed BNP [NT Pro Brain Natriuretic Pep.] Stat Lab 10/19/24 17:23 Completed CBC w/Auto Diff [Complete Blood Count Auto Diff] Stat Lab 10/19/24 17:23 Completed CMP [Comprehensive Metabolic Panel] Stat Lab 10/19/24 17:23 Completed CRP [C-Reactive Protein] Stat Lab 10/19/24 17:23 Completed ESR [Erythrocyte Sedimentation Rate] Stat Lab 10/19/24 17:23 Completed HIV Combo Stat Lab 10/19/24 17:23 Completed Hepatitis C Ab Qual. W/ RFX Stat Lab 10/19/24 17:23 Completed INR [Prothrombin Time INR] Stat Lab 10/19/24 17:23 Completed Magnesium Stat Lab 10/19/24 17:23 Completed POC Glucose,Bedside Routine Lab 10/19/24 16:46 Completed Procalcitonin Stat Lab 10/19/24 17:23 Completed Trop I [Troponin I] Stat Lab 10/19/24 17:23 Completed Troponin I Q3H Lab 10/19/24 22:45 Ordered UA [Urinalysis and Microscopic] Stat Lab 10/19/24 18:46 Completed Urine Culture Stat Micro 10/19/24 18:46 Received ECG Data Tracing #1: I reviewed this ECG and interpreted as documented below: Normal sinus rhythm at a rate of 70, QTc 437, normal axis, no STEMI HEART Score HEART Score: 5 Medical Decision Narrative: In summary patient is a 79-year-old female who presents to the emergency department for evaluation of a month of headache intermittently but has been present for the last 3 days. Patient currently has no symptoms however. Patient is markedly hypertensive on arrival with a blood pressure of 201/94 but heart rate is 70 breathing 17 times minute satting at 99% on room air upon arrival, afebrile at 98.1. Physical exam is remarkable for a Sole Coma Score 15 cranial nerves II through XII intact respiratory exam pupils equal round reactive to light accommodation patient has no cervical spine tenderness no rigidity no meningeal signs patient has full range of motion of her C-spine. She is ambulatory in the emergency department without any focal neurologic deficits. She has normal gait and station. Breath sounds clear and equal bilaterally to the bases without adventitious sounds. Cardiovascular S1-S2 regular rate and rhythm without murmurs gallops rubs or thrills. No dependent edema noted. Abdomen soft nontender no rebound or guarding no rigidity. Bowel sounds normal active. Differential diagnosis includes migraine headache versus PRES versus stroke versus kidney injury versus hypertensive cardiomyopathy versus aneurysm etc. Initial workup will be conducted with hematologic labs urinalysis CT of the head without contrast CTA of the head and neck. Initial interventions were considered including migraine cocktail and antihypertensives however patient is currently asymptomatic and without complaint thus deferred for now. Initial workup reviewed by me and her hematologic labs show white count of 13.7 normal H&H absolute neutrophil count of 8.0 INR is 0.95 CMP significant for CO2 of 31 glucose of 136 magnesium 1.8 troponin is undetectable at less than 0.01 CRP of 10 and NT proBNP of 180 procalcitonin 0.062 and a urinalysis that is negative for protein glucose and total x 1+ of blood negative nitrates and 1+ of leukocyte Estrace however microscopic exam shows 5-10 red cells 20-50 white cells 20-50 squamous epithelial cells indicating contamination 4+ bacteria. Patient has no dysuria symptoms thus treatment is deferred. Medical interpretation of her CT scans prior to radiology read shows no acute intracranial abnormality or large vessel occlusion or stroke. Please see final read for formal interpretation.. Upon repeat evaluation patient remains with a Sole Coma Score 15 awake alert and oriented person place circumstance and not stroke score 0 and asymptomatic. Given this patient has no evidence of endorgan tissue damage despite having markedly elevated blood pressure. Given this we have essentially ruled out any serious or life-threatening condition and while there remains diagnostic uncertainty of the cause of her headaches patient is appropriate for discharge with close follow-up with her PCP for better blood pressure management. Again I will also refer the patient to cardiology given the marked [place] elevated nature of her blood pressure. Patient verbalized understanding and agreed JOSIAS attestation I was consulted by the JOSIAS, and we discussed the complexity of problems being addressed. I approved the treatment and management plan for this patient's care in the emergency department, thus performing a substantial portion of the medical decision making. I also evaluated and examined the patient at bedside. She had asymptomatic markedly elevated blood pressure. NIH of 0 on my examination. Workup as described above. I independently interpreted her EKG as described above. CT imaging was independently interpreted by me, revealing of no acute intracranial pathology. Appropriate for discharge with PCP follow-up Jewel Mohan MD Critical Care <LUIZ Gonsalez - Last Filed: 10/19/24 19:53> Critical Care Time Critical Care Time: Yes Attestation: On 10/19/24, the high probability of a clinically significant, sudden or life threatening deterioration of the following system(s) required my full and direct attention, intervention and personal management. The time I documented below is in addition to time spent performing reported procedures but includes the following listed in this critical care notation. Total Time Total Critical Care Time: 35
--- NOTE | 2024-10-19 16:36 | CT_ITS ---
PROCEDURE INFORMATION: Exam: CTA Head With Contrast, Arteriography Exam date and time: 10/19/2024 6:20 PM Age: 79 years old Clinical indication: Pain; Other: AMS; Headache; Additional info: Headache for months TECHNIQUE: Imaging protocol: Computed tomographic angiography of the head with contrast. Exam focused on the arteries. 3D rendering (Not supervised by radiologist): MIP and/or 3D reconstructed images were created by the technologist. Radiation optimization: All CT scans at this facility use at least one of these dose optimization techniques: automated exposure control; mA and/or kV adjustment per patient size (includes targeted exams where dose is matched to clinical indication); or iterative reconstruction. Contrast material: ISOVUE; Contrast volume: 80 ml; Contrast route: INTRAVENOUS (IV); COMPARISON: CT HEAD/BRAIN WO CON 10/19/2024 6:18 PM FINDINGS: ANTERIOR CIRCULATION: Right internal carotid artery: Intracranial segment is patent with no significant stenosis. No aneurysm. Right middle cerebral artery: No occlusion or significant stenosis. No aneurysm. Right anterior cerebral artery: No occlusion or significant stenosis. No aneurysm. Left internal carotid artery: Intracranial segment is patent with no significant stenosis. No aneurysm. Left middle cerebral artery: No occlusion or significant stenosis. No aneurysm. Left anterior cerebral artery: No occlusion or significant stenosis. No aneurysm. POSTERIOR CIRCULATION: Right vertebral artery: No occlusion or significant stenosis. No aneurysm. Left vertebral artery: No occlusion or significant stenosis. No aneurysm. Basilar artery: No occlusion or significant stenosis. No aneurysm. Right posterior cerebral artery: No occlusion or significant stenosis. No aneurysm. Left posterior cerebral artery: No occlusion or significant stenosis. No aneurysm. Brain: No definite mass, mass effect, or midline shift. Cerebral ventricles: No ventriculomegaly. Bones/joints: Unremarkable. No acute fracture. Soft tissues: Unremarkable. IMPRESSION: No large vessel stenosis or occlusion.
--- NOTE | 2024-10-19 16:36 | CT_ITS ---
PROCEDURE INFORMATION: Exam: CT Head Without Contrast Exam date and time: 10/19/2024 6:18 PM Age: 79 years old Clinical indication: Pain; Altered mental status/memory loss; Headache; Additional info: Headache for months TECHNIQUE: Imaging protocol: Computed tomography of the head without contrast. Radiation optimization: All CT scans at this facility use at least one of these dose optimization techniques: automated exposure control; mA and/or kV adjustment per patient size (includes targeted exams where dose is matched to clinical indication); or iterative reconstruction. COMPARISON: CT - HEADWO CT head/brain wo con 07/30/2018 10:50 AM FINDINGS: Brain: Atrophy and chronic small vessel ischemic changes. No hemorrhage. No mass effect or midline shift. Cerebral ventricles: No ventriculomegaly. Paranasal sinuses: Visualized sinuses are unremarkable. No fluid levels. Mastoid air cells: Visualized mastoid air cells are well aerated. Bones: Unremarkable. No acute fracture. Soft tissues: Unremarkable. IMPRESSION: Chronic changes in the brain but no acute intracranial abnormality.
--- NOTE | 2024-10-19 16:36 | CT_ITS ---
PROCEDURE INFORMATION: Exam: CTA Neck With Contrast Exam date and time: 10/19/2024 6:20 PM Age: 79 years old Clinical indication: Headache; Additional info: Headache for months TECHNIQUE: Imaging protocol: Computed tomographic angiography of the neck with contrast. Exam focused on the cervical segments of the vasculature. 3D rendering (Not supervised by radiologist): MIP and/or 3D reconstructed images were created by the technologist. Radiation optimization: All CT scans at this facility use at least one of these dose optimization techniques: automated exposure control; mA and/or kV adjustment per patient size (includes targeted exams where dose is matched to clinical indication); or iterative reconstruction. Contrast material: ISOVUE; Contrast volume: 80 ml; Contrast route: INTRAVENOUS (IV); COMPARISON: MR - SPCERVWO MR cervical spine wo con 06/08/2018 2:48 PM FINDINGS: Right common carotid artery: No stenosis. No dissection or occlusion. Right internal carotid artery: No stenosis of the extracranial segment. No dissection or occlusion. Right external carotid artery: No occlusion or stenosis of the origin. Left common carotid artery: No stenosis. No dissection or occlusion. Left internal carotid artery: No stenosis of the extracranial segment. No dissection or occlusion. Left external carotid artery: No occlusion or stenosis of the origin. Right vertebral artery: No stenosis. No dissection or occlusion. Left vertebral artery: No stenosis. No dissection or occlusion. Soft tissues: Normal. No significant soft tissue swelling. Bones/joints: No acute fracture. IMPRESSION: No stenosis or occlusion. REFERENCES: NASCET CRITERIA. The degree of stenosis in the cervical segment of the internal carotid artery is based on NASCET criteria. Normal is no stenosis. Mild is less than 50% stenosis. Moderate is 50-69% stenosis. Severe is 70% to 99% stenosis. Total occlusion is no detectable patent lumen.
--- NOTE | 2024-10-19 16:41 | PC.NURSE ---
FSBS is 142.
--- NOTE | 2024-10-19 16:49 | PC.NURSE ---
Manual BP 145/100
[2024-10-19 16:53] LABS: POC Glucose,Bedside 142 (70-110)
[2024-10-19] MEDS: ACETAMINOPHEN 500MG TAB 1000 MG PO (17:24)
[2024-10-19 17:34] LABS: Basophils # 0.1 K/mm3 (0-0.2); Basophils % 0.5 % (0.1-2.0); Eosinophils # 1.3 Kmm3 (0.0-0.4); Eosinophils % 9.6 % (0.1-12.0); Hematocrit 43.5 % (37.0-47.0); Hemoglobin 15.1 g/dL (12.2-16.2); Lymphocytes # 3.3 K/mm3 (0.7-4.5); Mean Corpuscular HGB Conc 34.7 g/dL (31.8-35.4); Mean Corpuscular Hemoglobin 29.2 pg (27.0-31.2); Mean Platelet Volume 9.5 fl (7.4-10.4); Neutrophils % 58.5 % (37.0-80.0); Nucleated Red Blood Cells # 0 10^3/uL; Nucleated Red Blood Cells % 0 %; Platelet Count 290 K/mm3 (142-424); Red Blood Count 5.18 M/mm3 (4.20-5.40); Red Cell Distribution Width 12.8 % (11.5-17.5); Red Cell Distribution Width-SD 38.9 fL; White Blood Count 13.7 K/mm3 (4.8-10.8)
[2024-10-19 17:54] LABS: Albumin Level 4.3 g/dl (3.5-5.0); Chloride 101 mmol/L (98-107); Potassium 3.6 mmoL/L (3.5-5.1); Sodium 140 mmol/L (136-145)
[2024-10-19 17:57] LABS: Alanine Aminotransferase 23 U/L (12-78); Albumin/Globulin Ratio 1.4 (1.1-1.8); Alkaline Phosphatase 63 U/L (38-126); Anion Gap 11.6 mEq/L (5-15); Aspartate Amino Transferase 31 U/L (14-36); Bilirubin,Total 0.5 mg/dl (0.2-1.3); Blood Urea Nitrogen 14 mg/dl (7-17); Carbon Dioxide 31 mmol/L (22.0-30.0); Creatinine Clearance Estimated 62 mL/min (50-200); Estimated Glomerular Filt Rate 81 ml/min (>60); GFR (African American) 98 ML/MIN (>60); Total Protein,Serum 7.3 g/dl (6.3-8.2)
[2024-10-19 17:58] LABS: Calcium 9.6 mg/dl (8.4-10.2); Glucose 136 mg/dl (74-100); Magnesium 1.8 mg/dl (1.6-2.3)
[2024-10-19 18:05] LABS: INR 0.95 (0.9-1.1); Prothrombin Time 10.7 seconds (10.1-12.5)
[2024-10-19 18:10] LABS: NT Pro Brain Natriuretic Pep. 180 pg/mL (0-450)
[2024-10-19 18:14] LABS: Troponin I < 0.01 ng/ml (0.00-0.034)
[2024-10-19 18:24] LABS: Erythrocyte Sedimentation Rate 12 mm/hr (0-30)
[2024-10-19] MEDS: 0.9 % SODIUM CHLORIDE 50 ML VIAL IV (18:26)
[2024-10-19] MEDS: SODIUM CHLORIDE 0.9% 10ML SYR (RAD ONLY) 10 ML IV (18:26)
[2024-10-19] MEDS: IOPAMIDOL-370 (76%);100ML BOTTLE 80 ML IV (18:26)
[2024-10-19 18:41] LABS: HIV Combo NEGATIVE (Negative)
[2024-10-19 18:42] LABS: Procalcitonin 0.062 ng/mL (0.0-2.0)
[2024-10-19 18:49] LABS: Hepatitis C Ab Qual. W/ RFX NEGATIVE (Negative)
[2024-10-19 18:51] LABS: Microscopic, Urine URINE MICROSCOPIC (MICROSCOPIC)
[2024-10-19 19:03] LABS: Appearance,Urine CLEAR (Clear); Bilirubin,Urine Negative (Negative); Blood, Urine 1+ (Negative); Color,Urine YELLOW (Yellow); Glucose,Urine (UA) Negative (Negative); Ketones,Urine Negative (Negative); Leukocyte Esterase,Urine 1+ (Negative); Nitrate,Urine Negative (Negative); PH,Urine 6.5 (5.0-8.5); Protein,Urine Negative (Negative); Urobilinogen,Urine 0.2 EU/dl (0.2)
[2024-10-19 19:48] LABS: Bacteria,Urine 4+ /lpf; Squamous Epithelial Cell,Urine 20-50 #/hpf (0-5); WBC,Urine 20-50 #/hpf (0-3)
== END 2024-10-19 20:03 | disposition home or self-care (01) ==
PROVIDERS: Physician Assistant; Emergency Provider Student in an Organized Health Care Education/Training Program; PCP Nurse Practitioner Family
DX: R51.9 Headache, unspecified (principal); I10 Essential (primary) hypertension; Z11.59 Encounter for screening for other viral diseases; Z11.4 Encounter for screening for human immunodeficiency virus [HIV]
CPT/HCPCS: 70450; 70496; 70498; 80053; 81001; 82962; 83735; 83880; 84145; 84484; 85025; 85610; 85651; 86140; 86803; 87086; 87389; 93005; 99285; Q9967

== ENCOUNTER 2025-05-11 14:19 | Outpatient (CLI) | payer MEDICARE, MEDICAID, SELFPAY ==
[2025-05-11 14:33] LABS: Hematocrit 43.2 % (37.0-47.0); Hemoglobin 15.0 g/dL (12.2-16.2); Immature Granulocytes % 0.6 %; Mean Corpuscular HGB Conc 34.7 g/dL (31.8-35.4); Mean Corpuscular Hemoglobin 29.6 pg (27.0-31.2); Mean Corpuscular Volume 85.2 fl (81-99); Nucleated Red Blood Cells % 0 %; Platelet Count 338 K/mm3 (142-424); Red Blood Count 5.07 M/mm3 (4.20-5.40); Red Cell Distribution Width-SD 39.6 fL; White Blood Count 15.6 K/mm3 (4.8-10.8)
== END 2025-05-11 23:59 | disposition home or self-care (01) ==
LOC: LAB 14:20
PROVIDERS: PCP Nurse Practitioner Family; Visit Provider Internal Medicine Medical Oncology
DX: D72.820 Lymphocytosis (symptomatic) (principal)
CPT/HCPCS: 36415; 85025